=== PATIENT | male | born 1980 | race Native Hawaiian/Other Pacific Islander ===

== ENCOUNTER 2018-01-19 14:52 | Outpatient (CLI) | payer OTHER ==
[2018-01-19 15:30] LABS: PLATELET COUNT 331 K/uL (142-355)
[2018-01-19 15:59] LABS: POTASSIUM 4.9 mmol/L (3.6-5.2)
== END 2018-01-19 20:02 | disposition home or self-care (01) ==
LOC: LABW 14:52
PROVIDERS: Internal Medicine
DX: N18.3 Chronic kidney disease, stage 3 (moderate) (principal); R79.89 Other specified abnormal findings of blood chemistry
CPT/HCPCS: 36415; 80053; 80074; 81000; 82043; 82306; 82330; 82550; 82570; 82607; 82746; 83036; 83735; 83970; 84100; 84155; 84439; 84443; 84550; 85027; 85651; 86039; 86140; 86430